=== PATIENT | male | born 1985 ===

== ENCOUNTER 2018-03-01 10:23 | Emergency (ER) | payer OTHER ==
[~2018-03-01] VITALS: Ht 177.8 cm; Wt 60.3 kg
[~2018-03-01 10:23] MED LIST: CIPRO500 MG PO; FLAGYL500MG PO; INTESTINEX1 CAP PO; PROTONIX40 MG PO
[2018-03-01] MEDS ORDERED: HYOSCYAMINE0.125 M2 (10:30)
[2018-03-01] MEDS ORDERED: SKELAXIN800 MG PO (16:07)
[2018-03-01] MEDS ORDERED: PEPCID AC20 MG PO (16:07)
== END 2018-03-01 16:20 | disposition home or self-care (01) ==
LOC: ER 10:23 → CPU-OBS 10:44 → ER 10:44
DX: R00.0 Tachycardia, unspecified (principal); R00.2 Palpitations; E86.0 Dehydration; R07.89 Other chest pain; R10.13 Epigastric pain
CPT/HCPCS: G0378; G0379; 74176; 93005

== ENCOUNTER 2018-03-06 08:02 | Outpatient (CLI) | payer OTHER ==
[~2018-03-06 08:02] MED LIST changes: +HYOSCYAMINE0.125 M2; +PEPCID AC20 MG PO; +SKELAXIN800 MG PO
== END 2018-03-06 08:45 | disposition home or self-care (01) ==
LOC: TOM 08:02
DX: K64.3 Fourth degree hemorrhoids (principal); R10.11 Right upper quadrant pain

== ENCOUNTER 2018-03-18 11:38 | Emergency (ER) | payer OTHER ==
[~2018-03-18] VITALS: Ht 177.8 cm; Wt 59.0 kg
[2018-03-18] MEDS ORDERED: PAXIL CR25 MG PO (12:40)
[2018-03-18] MEDS ORDERED: VISTARIL25 MG PO (12:41)
[2018-03-18] MEDS ORDERED: FLORAVANCE CAP1 EACH PO (12:41)
== END 2018-03-18 15:35 | disposition home or self-care (01) ==
LOC: ER 11:38
DX: R06.02 Shortness of breath (principal); F06.4 Anxiety disorder due to known physiological condition

== ENCOUNTER 2018-03-20 13:16 | Outpatient (CLI) | payer OTHER ==
[~2018-03-20 13:16] MED LIST changes: +FLORAVANCE CAP1 EACH PO; +PAXIL CR25 MG PO; +VISTARIL25 MG PO
== END 2018-03-20 13:24 | disposition home or self-care (01) ==
LOC: RAD 13:16
DX: R91.1 Solitary pulmonary nodule (principal); R06.02 Shortness of breath

== ENCOUNTER 2018-10-24 09:23 | Outpatient (CLI) | payer OTHER | END 2018-10-24 09:45 | disposition home or self-care (01) | LOC: LAB 09:23 | DX: D50.8 Other iron deficiency anemias (principal); I10 Essential (primary) hypertension; D55.0 Anemia due to glucose-6-phosphate dehydrogenase [G6PD] deficiency; D51.1 Vitamin B12 deficiency anemia due to selective vitamin B12 malabsorption with proteinuria; E03.8 Other specified hypothyroidism; E06.3 Autoimmune thyroiditis; B20 Human immunodeficiency virus [HIV] disease; B18.8 Other chronic viral hepatitis; B27.99 Infectious mononucleosis, unspecified with other complication; D72.818 Other decreased white blood cell count; D51.3 Other dietary vitamin B12 deficiency anemia; D51.8 Other vitamin B12 deficiency anemias; D51.0 Vitamin B12 deficiency anemia due to intrinsic factor deficiency ==

== ENCOUNTER 2019-01-01 09:32 | Outpatient (CLI) | payer OTHER | END 2019-01-01 09:44 | disposition home or self-care (01) | LOC: LAB 09:32 | DX: D50.8 Other iron deficiency anemias (principal); I10 Essential (primary) hypertension; D72.818 Other decreased white blood cell count; D51.3 Other dietary vitamin B12 deficiency anemia; D51.8 Other vitamin B12 deficiency anemias; E03.8 Other specified hypothyroidism ==

== ENCOUNTER → 2019-03-11 | Outpatient (CLI) | payer OTHER | END | disposition home or self-care (01) | LOC: TOM 12:31 | DX: J31.0 Chronic rhinitis (principal); J34.2 Deviated nasal septum ==

== ENCOUNTER → 2019-03-13 | Outpatient (CLI) | payer OTHER | END | disposition home or self-care (01) | LOC: RAD 10:45 | DX: M16.0 Bilateral primary osteoarthritis of hip (principal); M53.3 Sacrococcygeal disorders, not elsewhere classified; M16.9 Osteoarthritis of hip, unspecified ==

== ENCOUNTER → 2019-04-03 09:14 | Outpatient (CLI) | payer OTHER | END | disposition home or self-care (01) | LOC: LAB 09:14 | DX: E03.8 Other specified hypothyroidism (principal); D64.89 Other specified anemias; D72.818 Other decreased white blood cell count; D51.3 Other dietary vitamin B12 deficiency anemia; K90.89 Other intestinal malabsorption; K90.41 Non-celiac gluten sensitivity; K90.49 Malabsorption due to intolerance, not elsewhere classified; K29.70 Gastritis, unspecified, without bleeding; K21.9 Gastro-esophageal reflux disease without esophagitis; D50.8 Other iron deficiency anemias; D51.8 Other vitamin B12 deficiency anemias; I10 Essential (primary) hypertension; D51.1 Vitamin B12 deficiency anemia due to selective vitamin B12 malabsorption with proteinuria; D51.0 Vitamin B12 deficiency anemia due to intrinsic factor deficiency; B27.99 Infectious mononucleosis, unspecified with other complication; E78.2 Mixed hyperlipidemia; E55.9 Vitamin D deficiency, unspecified ==

== ENCOUNTER 2019-04-08 16:03 | Outpatient (CLI) | payer OTHER | END 2019-04-08 16:12 | disposition home or self-care (01) | LOC: RAD 16:03 | DX: D72.818 Other decreased white blood cell count (principal); D51.3 Other dietary vitamin B12 deficiency anemia; B27.90 Infectious mononucleosis, unspecified without complication; K90.89 Other intestinal malabsorption; K90.49 Malabsorption due to intolerance, not elsewhere classified; K29.70 Gastritis, unspecified, without bleeding; K21.9 Gastro-esophageal reflux disease without esophagitis; E55.9 Vitamin D deficiency, unspecified ==

== ENCOUNTER 2020-05-11 10:03 | Outpatient (CLI) | payer OTHER | END 2020-05-11 10:09 | disposition home or self-care (01) | LOC: LAB 10:03 | PROVIDERS: ATTEND Internal Medicine Hematology & Oncology | DX: K21.9 Gastro-esophageal reflux disease without esophagitis (principal); D50.8 Other iron deficiency anemias; I10 Essential (primary) hypertension; E03.8 Other specified hypothyroidism; D51.8 Other vitamin B12 deficiency anemias; D72.818 Other decreased white blood cell count; D51.3 Other dietary vitamin B12 deficiency anemia; B27.90 Infectious mononucleosis, unspecified without complication; K90.89 Other intestinal malabsorption; K90.49 Malabsorption due to intolerance, not elsewhere classified; K29.70 Gastritis, unspecified, without bleeding; E55.9 Vitamin D deficiency, unspecified; J45.998 Other asthma ==

== ENCOUNTER 2020-11-01 09:16 | Outpatient (CLI) | payer OTHER | END 2020-11-01 09:23 | disposition home or self-care (01) | LOC: LAB 09:16 | PROVIDERS: ATTEND Internal Medicine Hematology & Oncology | DX: I10 Essential (primary) hypertension (principal); D50.8 Other iron deficiency anemias; R79.89 Other specified abnormal findings of blood chemistry; R74.02 Elevation of levels of lactic acid dehydrogenase [LDH]; D51.8 Other vitamin B12 deficiency anemias; E55.9 Vitamin D deficiency, unspecified; E03.8 Other specified hypothyroidism; R97.0 Elevated carcinoembryonic antigen [CEA]; R97.8 Other abnormal tumor markers; D51.3 Other dietary vitamin B12 deficiency anemia; D72.818 Other decreased white blood cell count; B27.90 Infectious mononucleosis, unspecified without complication; K90.89 Other intestinal malabsorption; K29.70 Gastritis, unspecified, without bleeding; K21.9 Gastro-esophageal reflux disease without esophagitis; J45.998 Other asthma ==

== ENCOUNTER 2021-10-21 16:42 | Emergency (ER) | payer OTHER ==
[~2021-10-21] VITALS: Ht 177.8 cm; Wt 68.0 kg
[2021-10-21] MEDS ORDERED: METOPROLOL SUCC25 MG PO (17:00)
== END 2021-10-21 22:48 | disposition home or self-care (01) ==
LOC: ER 16:42
DX: K52.9 Noninfective gastroenteritis and colitis, unspecified (principal); Z20.828 Contact with and (suspected) exposure to other viral communicable diseases

== ENCOUNTER → 2022-03-22 10:10 | Outpatient (CLI) | payer OTHER ==
[~2022-03-22 10:10] MED LIST changes: +METOPROLOL SUCC25 MG PO
== END | disposition home or self-care (01) ==
LOC: LAB 10:10
PROVIDERS: ATTEND Internal Medicine Hematology & Oncology
DX: D64.9 Anemia, unspecified (principal); N39.0 Urinary tract infection, site not specified; R10.9 Unspecified abdominal pain; E03.9 Hypothyroidism, unspecified; E78.5 Hyperlipidemia, unspecified; R80.9 Proteinuria, unspecified; E11.9 Type 2 diabetes mellitus without complications; I50.22 Chronic systolic (congestive) heart failure; Z79.01 Long term (current) use of anticoagulants; D50.8 Other iron deficiency anemias; R79.9 Abnormal finding of blood chemistry, unspecified; I10 Essential (primary) hypertension; R74.02 Elevation of levels of lactic acid dehydrogenase [LDH]; K76.89 Other specified diseases of liver; D51.8 Other vitamin B12 deficiency anemias; E55.9 Vitamin D deficiency, unspecified; E78.2 Mixed hyperlipidemia; E03.8 Other specified hypothyroidism; R97.0 Elevated carcinoembryonic antigen [CEA]; R97.8 Other abnormal tumor markers; R97.20 Elevated prostate specific antigen [PSA]; D72.818 Other decreased white blood cell count; D51.3 Other dietary vitamin B12 deficiency anemia; B27.90 Infectious mononucleosis, unspecified without complication; K90.89 Other intestinal malabsorption; K90.49 Malabsorption due to intolerance, not elsewhere classified; K29.70 Gastritis, unspecified, without bleeding; J21.9 Acute bronchiolitis, unspecified; J45.998 Other asthma

== ENCOUNTER 2022-09-19 09:45 | Outpatient (CLI) | payer OTHER | END 2022-09-19 10:24 | disposition home or self-care (01) | LOC: LAB 09:45 | PROVIDERS: ATTEND Internal Medicine Hematology & Oncology | DX: D72.818 Other decreased white blood cell count (principal); D51.3 Other dietary vitamin B12 deficiency anemia; B27.90 Infectious mononucleosis, unspecified without complication; K90.89 Other intestinal malabsorption; K90.49 Malabsorption due to intolerance, not elsewhere classified; K29.70 Gastritis, unspecified, without bleeding; K21.9 Gastro-esophageal reflux disease without esophagitis; E55.9 Vitamin D deficiency, unspecified; J45.998 Other asthma ==